=== PATIENT | female | born 1985 | race Caucasian/White ===

== ENCOUNTER 2023-01-04 14:31 | Emergency (ER) | payer MEDICAID, SELFPAY ==
[2023-01-04 14:37] VITALS: BP 129/90; PULSE 100; RESP 20; TEMP 36.6; O2SAT 97
[2023-01-04 14:41] VITALS: PULSE 100; RESP 20; TEMP 36.6
--- NOTE | 2023-01-04 14:47 | ED.GENADUL_ITS ---
Discharge Plan Disposition Patient Disposition: Home Discharge Details Clinical Impression: Otitis media Primary Care Provider: Lynne Hernandez ED Provider: Kelly Kaplan Home Meds and New Rx's Prescriptions: New amoxicillin 500 mg tablet 1,000 mg PO QID Qty: 42 0RF Discharge Instructions Instructions: Ear Infection (ED) Additional Instructions: Ibuprofen and Tylenol as needed for pain Decongestant to help alleviate the fluid behind your ears Ibuprofen and Tylenol for pain control Antibiotic as prescribed, yogurt daily while on antibiotic to prevent opportunistic stool infection Return earlier should you have new or worsening complaints Stand Alone Forms: Work Release Referrals: Lynne Hernandez MD [Primary Care Provider] - Discharge Data Discharge Date/Time-TO BE ENTERED AT DEPARTURE: 01/04/23 15:46 Medical Decision Making 37-year-old female, afebrile and nontoxic presenting with left ear pain, left otitis media, fluid middle ear effusion behind right ear, no mastoid tenderness behind left ear, oropharynx patent, uvula midline, no abscess visualized, placed on amoxicillin Return precautions reviewed and patient expressed understanding HPI General Date/Time Provider Initiated Documentation: 01/04/23 14:41 . HPI Narrative: This 37-year-old female presents with 2 days of ear pain, left worse than right, feels like there is fluid behind TMs bilaterally. Denies fever or chills. Denies any chest pain or shortness of breath. Denies any drainage from the ear. Denies chance of . Denies sore throat. Related Data Home Medications Medication Instructions Recorded Confirmed amoxicillin 500 mg tablet 1,000 mg (2 x 500 mg) PO QID #42 01/04/23 tabs Previous Rx's Medication Instructions Recorded amoxicillin 500 mg tablet 1,000 mg (2 x 500 mg) PO QID #42 01/04/23 tabs General Stated Complaint: EarProblem KOBY: 4 PFSH All Active Problems (Updated 01/04/23 @ 15:14 by KAMRAN Serrano) Otitis media (Acute) Social History Smoking/Tobacco Use Status: Current every day Smoking risk assessment performed?: Yes Alcohol Intake: current Alcohol Intake frequency: a few times a week Substance use type: does not use Details: methadone Housing: homeless Do you feel safe at home: Yes Do you feel safe in your relationship?: Yes Course Vital Signs Vital signs: Vital Signs Temperature 36.6 C 01/04/23 14:37 Pulse 100 H 01/04/23 14:37 Respiratory Rate 20 01/04/23 14:37 Blood Pressure 129/90 01/04/23 14:37 Pulse Oximetry 97 01/04/23 14:37 Temperature 36.6 C 01/04/23 14:41 Temperature Source Temporal Artery Scan 01/04/23 14:37 Pulse 100 H 01/04/23 14:41 Respiratory Rate 20 01/04/23 14:41 Respiratory Effort Normal 01/04/23 14:39 Blood Pressure 129/90 01/04/23 14:37 Pulse Oximetry 97 01/04/23 14:37 Oxygen Delivery Method Room Air 01/04/23 14:37 Oxygen Flow Rate 0 01/04/23 14:37
== END 2023-01-04 15:46 | disposition home or self-care (01) ==
PROVIDERS: Emergency Provider Physician Assistant; PCP Family Medicine
DX: H66.92 Otitis media, unspecified, left ear (principal); F17.210 Nicotine dependence, cigarettes, uncomplicated
CPT/HCPCS: 99282

== ENCOUNTER 2023-01-07 22:14 | Emergency (ER) | payer MEDICAID, SELFPAY ==
--- OUTSIDE RECORDS SUMMARY | 2023-01-07 22:20 | XMS_ITS | Continuity of Care Document ---
Author Name Unknown Organization [facility] Address [address] [place] [address] Care Team Providers Care Consulting Sales Executive Name Role Phone Daria Solis Primary Care Physician [phone] Encounter [facility] Date(s): 06/21/22 - 06/21/[address] [address] Discharge Disposition: Left Against Medical Advice Attending Physician: Bonita Montanez MD Admitting Physician: Bonita Montanez MD Allergies, Adverse Reactions, Alerts Substance Reaction Severity Status codeine Urticaria Unknown Active cephalexin Bewilderment Unknown Active Immunizations Given and Recorded Vaccine Date Status Refusal Reason influenza virus vaccine, live 01/14/20 Recorded influenza virus vaccine, live 01/21/19 Recorded tetanus/diphth/pertuss (Tdap) adult/adol 08/18/17 Recorded tetanus/diphth/pertuss (Tdap) adult/adol 1 05/28/14 Recorded influenza, unspecified formulation 03/28/14 Record ed rubella virus vaccine 03/06/00 Recorded varicella virus vaccine 03/06/00 Recorded tetanus-diphth toxoids (Td) adult/adol 03/06/00 Re corded 1Result 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: [employer] Medications Adderall XR 30 mg oral capsule, extended release 30 mg 1 cap, Oral, BID, # 28 cap, 0 Refill(s), Pharmacy: [id number], 165.1, cm, 08/11/21 20:47:00 EDT, Height/Length Dosing, 79.38, kg, 08/11/21 20:47:00 EDT, Weight Dosing Start Date: 09/28/21 Stop Date: 10/12/21 Status: Ordered Adderall XR 30 mg oral capsule, extended release 30 mg 1 cap, Oral, every morning, # 28 cap, 0 Refill(s), Pharmacy: [id number], 165.1, cm, 08/11/21 20:47:00 EDT, Height/Length Dosing, 79.38, kg, 08/11/21 20:47:00 EDT, Weight Dosing Start Date: 08/31/21 Stop Date: 09/28/21 Status: Ordered Adderall XR 30 mg oral capsule, extended release 30 mg 1 cap, Oral, BID, # 60 cap, 0 Refill(s), Pharmacy: [id number], 165.1, cm, 08/11/21 20:47:00 EDT, Height/Length Dosing, 79.38, kg, 08/11/21 20:47:00 EDT, Weight Dosing Start Date: 10/13/21 Stop Date: 11/12/21 Status: Ordered dextroamphetamine-amphetamine 30 mg oral capsule, extended release 30 mg 1 cap, Oral, BID, as directed; for 28 days, 0 Refill(s) Start Date: 08/16/21 Status: Ordered gabapentin 300 mg oral capsule 600 mg = 2 cap, Oral, every night at bedtime, 0 Refill(s) Start Date: 08/16/21 Status: Ordered methadone See Instructions, 100 mg, 0 Refill(s) Start Date: 04/28/22 Status: Ordered [facility] Prescription Pt reports she only takes methadone, 0 Refill(s) Start Date: 04/28/22 Status: Ordered Zoloft 100 mg oral tablet 200 mg = 2 tab, Oral, every morning, for 30 days, # 60 tab, 1 Refill(s), Pharmacy: [id number], 165.1, cm, 08/11/21 20:47:00 EDT, Height/Length Dosing, 79.38, kg, 08/11/21 20:47:00 EDT, Weight Dosing Start Date: 03/22/22 Status: Ordered Zoloft 50 mg oral tablet 50 mg = 1 tab, Oral, every morning, for 30 days; Note to patient: Take Zoloft 100 mg + 50 mg daily,0 Refill(s) Start Date: 08/16/21 Status: Ordered Problem List Condition Confirmation Course Effective Dates Status H ealth Status Informant Attention deficit hyperactivity disorder Confirmed Active Bipolar disorder 1 Confirmed Active Cervical radiculopathy Confirmed 02/05/20 Active Endometriosis (clinical) Confirmed Active Exposure to viral hepatitis Confirmed Active H/O: premature delivery Confirmed 05/14/18 Active Human papillomavirus deoxyribonucleic acid test positive, high risk on cervical specimen Confirmed Active 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 Opioid dependence Confirmed Active hemorrhage 2 Confirmed 05/27/14 Active premature rupture of membranes Confirmed 05/26/14 Active Uterine scar from previous surgery affecting Confirmed 08/20/18 Active 1Outside Source Comment: Overview: previously used lamictal 2Outside Source Comment: Overview: At time of repeat C/S, EBL 1000 ml, not due to atony Procedures Procedure Date Related Diagnosis Body Site Status section (repeat) 1 05/25/14 Completed Laparoscopic excision of cys t of left ovary 10/25/12 Completed Drainage of pilonidal abscess 08/02/11 Completed section 04/01/11 Complete d Diagnostic laparoscopy w/ LO A (repeat) 2 2007 Completed Diagnostic laparoscopy w/ NILAM 03/05/04 Completed LEEP (Loop electrosurgical e xcision procedure) of cervix 3 2002 Completed PAP due 04/2023 5 yr pap 4 Completed 1Breech 2(repeat) at [facility] 3GSIL Neg/Neg Social History Social History Type Response Tobacco Current some day tob acco user Tobacco Use:. 1/2 pack per day per day. 10 year(s). Sex Female Patient Care team information Care Team Personnel Name: Daria Solis PA-C Position: Physician Member Role: Primary Care Physician Address: Address: [address] [place] [id number] [place] Care Team Related Persons Name: VIJAY BRONSON Address: Home [address] [facility] [address] [place], [place] [id number] Address: Mailing [address] [place], [place] [id number]
--- OUTSIDE RECORDS SUMMARY | 2023-01-07 22:20 | XMS_ITS | Continuity of Care Document ---
Author Name Unknown Organization [facility] Address [address] [place] [address] Care Team Providers Care Technical Supervisor Name Role Phone Daria Solis Primary Care Physician Encounter [facility] Date(s): 04/28/22 - 04/28/[address] [phone] [place] Encounter Diagnosis Gastroenteritis(Discharge Diagnosis) - 04/28/22 Noninfective gastroenteritis and colitis, unspecified(Final) - Nicotine dependence, cigarettes, uncomplicated(Final) - Other snf (current) drug therapy(Final) - Contact with and (suspected) exposure to other viral communicable diseases (Final) - Discharge Disposition: Home or Self Care Attending Physician: Ahsan Britt MD Admitting Physician: Ahsan Britt MD Allergies, Adverse Reactions, Alerts Substance Reaction Severity Status codeine Urticaria Unknown Active cephalexin Bewilderment Unknown Active Assessment and Plan Extracted from: Title:Clinical Document Author:Netta Lemus te:04/28/22 Diagnosis: 1. Gastroenteriti s Comment: Diagnosis: Abdominal pain Comment: Future Appointments Functional Status 04/28/22 Other exposure to Infectious Disease Non e Immunizations Given and Recorded Vaccine Date Status Refusal Reason influenza virus vaccine, live 01/14/20 Recorded influenza virus vaccine, live 01/21/19 Recorded tetanus/diphth/pertuss (Tdap) adult/adol 08/18/17 Recorded rubella virus vaccine 03/06/00 Recorded varicella virus vaccine 03/06/00 Recorded tetanus-diphth toxoids (Td) adult/adol 03/06/00 Re corded Medications Adderall XR 30 mg oral capsule, extended release 30 mg 1 cap, Oral, BID, # 28 cap, 0 Refill(s), Pharmacy: [facility], 165.1, cm, 08/11/21 20:47:00 EDT, Height/Length Dosing, 79.38, kg, 08/11/21 20:47:00 EDT, Weight Dosing Start Date: 09/28/21 Stop Date: 10/12/21 Status: Ordered Adderall XR 30 mg oral capsule, extended release 30 mg 1 cap, Oral, every morning, # 28 cap, 0 Refill(s), Pharmacy: [facility], 165.1, cm, 08/11/21 20:47:00 EDT, Height/Length Dosing, 79.38, kg, 08/11/21 20:47:00 EDT, Weight Dosing Start Date: 08/31/21 Stop Date: 09/28/21 Status: Ordered Adderall XR 30 mg oral capsule, extended release 30 mg 1 cap, Oral, BID, # 60 cap, 0 Refill(s), Pharmacy: [facility], 165.1, cm, 08/11/21 20:47:00 EDT, Height/Length [...] 0 Refill(s) Start Date: 04/28/22 Status: Ordered methadone 100 mg = 2.5 tab, Oral, Tab, Once, First Dose: 04/28/22 12:37:00 EST, Stop Date: 04/28/22 12:37:00 EST, Physician Stop, STAT Start Date: 04/28/22 Stop Date: 04/28/22 Status: Completed [facility] Prescription Pt reports she only takes methadone, 0 Refill(s) Start Date: 04/28/22 Status: Ordered ondansetron 4 mg oral tablet, disintegrating 4 mg = 1 tab, Oral, QID, PRN nausea, # 15 tab, 0 Refill(s), 05/04/22 15:21:00 EST, Pharmacy: [facility], 165, cm, 04/28/22 12:32:00 EST, Height/Length Dosing, 79.38, kg, 04/28/22 12:32:00 EST,Weight Dosing Start Date: 04/28/22 Stop Date: 05/04/22 Status: Ordered Zoloft 100 mg oral tablet 200 mg = 2 tab, Oral, every morning, for 30 days, # 60 tab, 1 Refill(s), Pharmacy: [facility], 165.1, cm, 08/11/21 20:47:00 EDT, Height/Length [...] Informant Attention deficit hyperactivity disorder Confirmed Active Cervical radiculopathy Confirmed 02/05/20 Active Endometriosis (clinical) Confirmed Active Exposure to viral hepatitis Confirmed Active H/O: premature delivery Confirmed 05/14/18 Active Human papillomavirus deoxyribonucleic acid test positive, high risk on cervical specimen Confirmed Active 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 Opioid dependence Confirmed Active Uterine scar from previous surgery affecting Confirmed 08/20/18 Active Procedures Procedure Date Related Diagnosis Body Site [...] yr pap 4 Completed 1Breech 2(repeat) at [facility] Neg/Neg Results Laboratory List Name Date SARS-CoV-2 (COVID-19)/Flu/RSV (GeneXpert ) 04/28/22 .Manual Differential ([facility]) 04/28/22 Alcohol Level 04/28/22 CBC w/ Diff 04/28/22 Comprehensive Metabolic Panel 04/28/22 Lipase Level 04/28/22 Troponin-I 04/28/22 Most recent to oldest [Reference Range]: 1 WBC [5.0-10.0 x10^3/mcL] 15.7 x10^3/mcL *HI* (04/28/22 12:38 PM) RBC [4.1-5.3 x10^6/mcL] 4.8 x10^6/mcL (04/28/22 12:38 PM) Segs Man [40-75 %] 90 % *HI* (04/28/22 12:38 PM) Lymph Man [20-50 %] 7 % *LOW* (04/28/22 12:38 PM) [place] Man 2 % *NA* (04/28/22 12:38 PM) Eos Man 0 % *NA* (04/28/22 12:38 PM) BUN [7-18 mg/dL] 8 mg/dL (04/28/22 12:38 PM) Glucose Level [74-106 mg/dL] 115 mg/dL *HI* (04/28/22 12:38 PM) Potassium Level [3.5-5.1 mmol/L] 4.7 mmo l/L (04/28/22 12:38 PM) MCV [80.0-96.0] 91.5 (04/28/22 12:38 PM) RBC Morph Normal (04/28/22 12:38 PM) AST [15-37 unit/L] 33 unit/L (04/28/22 12:38 PM) ALT [14-59 unit/L] 24 unit/L (04/28/22 12:38 PM) MCHC [31.0-35.0 g/dL] 32.9 g/dL (04/28/22 12:38 PM) Troponin-I [0.0-51.4 pg/mL] <5.0 pg/mL (04/28/22 12:38 PM) Sodium Level [136-145 mmol/L] 136 mmol/L (04/28/22 12:38 PM) Hct [37.0-47.0 %] 44.1 % (04/28/22 12:38 PM) Lipase Level [16-77 unit/L] 27 unit/L (04/28/22 12:38 PM) Calcium Level [8.5-10.1 mg/dL] 9.2 mg/dL (04/28/22 12:38 PM) Albumin Level [3.4-5.0 g/dL] 3.7 g/dL (04/28/22 12:38 PM) Protein Total [6.4-8.2 g/dL] 7.4 g/dL (04/28/22 12:38 PM) MCH [26.0-32.0 pg] 30.1 pg (04/28/22:38 PM) Bilirubin Total [0.2-1.0 mg/dL] 0.5 mg/d L (04/28/22:38 PM) Hgb [12.0-16.0 g/dL] 14.5 g/dL (04/28/22 12:38 PM) Alk Phos [46-146 unit/L] 85 unit/L (04/28/22 12:38 PM) Ethanol Level [0-10 mg/dL] <5 mg/dL (04/28/22:38 PM) Band Man [0-5 %] 0 % (04/28/22 12:38 PM) Platelets [130-450 x10^3/mcL] 278 x10^3/ mcL (04/28/22 12:38 PM) CO2 [21-32 mmol/L] 23 mmol/L (04/28/22 12:38 PM) eGFR Non-AA [>=60] 75 (04/28/22 12:38 PM) eGFR AA [>=60] 75 (04/28/22 12:38 PM) Chloride Level [98-107 mmol/L] 101 mmol/ L (04/28/22 12:38 PM) RDW-CV [11.7-17.0 %] 13.2 % (04/28/22 12:38 PM) Abs Neut Man 14.1 x10^3/mcL *NA* (04/28/22 12:38 PM) Creatinine Level [0.55-1.02 mg/dL] 0.99 mg/dL (04/28/22 12:38 PM) Employed in healthcare? Unknown *NA* (04/28/22 12:59 PM) Symptomatic as defined by CDC? Unknown *NA* (04/28/22 12:59 PM) Hospitalized due to COVID-19? Unknown *NA* (04/28/22 12:59 PM) In ICU? Unknown *NA* (04/28/22 12:59 PM) Group care resident? Unknown *NA* (04/28/22 12:59 PM) status? Unknown *NA* (04/28/22 12:59 PM) SARS-CoV-2(Covid19)PCR(GXpert COVFLURSV) [Negative] Negative (04/28/22 12:59 PM) Flu A (GXpert COVFLURSV) [Negative] Nega tive (04/28/22 12:59 PM) RSV (GXpert COVFLURSV) [Negative] Negati ve (04/28/22 12:59 PM) Flu B (GXpert COVFLURSV) [Negative] Nega tive (04/28/22 12:59 PM) Baso Man [0-1 %] 1 % (04/28/22 12:38 PM) Vital Signs Most recent to oldest [Reference Range]: 1 2 3 Temperature Temporal Artery [36-38 Deg C] 36.7 Deg C (04/28/22 12:20 PM) Temperature Temporal Artery (DegF) [97.3-100 Deg F] 98.06 Deg F (04/28/22 12:20 PM) Peripheral Pulse Rate [60-100 bpm] 44 bpm *LOW* (04/28/22 12:46 PM) 44 bpm *LOW* (04/28/22 12:41 PM) 54 bpm *LOW* (04/28/22 12:32 PM) Heart Rate Monitored [60-100 bpm] 46 bpm *LOW* (04/28/22 12:46 PM) 45 bpm *LOW* (04/28/22 12:41 PM) Respiratory Rate [[id number] br/min] 20 br/min (04/28/22 2:26 PM) Respiratory Rate [12-24 br/min] 17 br/min (04/28/22 12:46 PM) 22 br/min (04/28/22 12:41 PM) Blood Pressure [90-140/60-90 mmHg] 132/73mmHg (04/28/22 12:46 PM) 135/116mmHg (04/28/22 12:20 PM) Weight Dosing 79.38 kg (04/28/22 12:32 PM) Weight Estimated 79.38 kg (04/28/22 12:20 PM) Height/Length Dosing 165.000 cm (04/28/22 12:32 PM) Height/Length Estimated 165.000 cm (04/28/22 12:20 PM) Social History Social History Type Response Tobacco Current some day tob acco user Tobacco Use:. 1/2 pack per day per day. 10 year(s). Sex Female Hospital Discharge Instructions Patient Education 04/28/2022 14:22:22 Viral Gastroenteritis, Adult Viral Gastroenteritis, Adult Viral gastroenteritis is also known as the stomach flu. This condition may affect your stomach, small intestine, and large intestine. It can cause sudden watery diarrhea, fever, and vomiting. This condition is caused by many different viruses. These viruses can be passed from person to person very easily (are contagious). Diarrhea and vomiting can make you feel weak and cause you to become dehydrated. You may not be able to keep fluids down. Dehydration can make you tired and thirsty, cause you to have a dry mouth, and decrease how often you urinate. It is important to replace the fluids that you lose from diarrhea and vomiting. What are the causes? Gastroenteritis is caused by many viruses, including rotavirus and norovirus. Norovirus is the mostcommon cause in adults. You can get sick after being exposed to the viruses from other people. You can also get sick by: ??? Eating food, drinking water, or touching a surface contaminated with one of these viruses. ??? Sharing utensils or other personal items with an infected person. What increases the risk? You are more likely to develop this condition if you: ??? Have a weak body defense system (immune system). ??? Live with one or more children who are younger than 2 years old. ??? Live in a shelter. ??? Travel on cruise ships. What are the signs or symptoms? Symptoms of this condition start suddenly 1???3 days after exposure to a virus. Symptoms may last for a few days or for as long as a week. Common symptoms include watery diarrhea and vomiting. Other symptoms include: ??? Fever. ??? Headache. ??? Fatigue. ??? Pain in the abdomen. ??? Chills. ??? Weakness. ??? Nausea. ??? Muscle aches. ??? Loss of appetite. How is this diagnosed? This condition is diagnosed with a medical history and physical exam. You may also have a stool test to check for viruses or other infections. How is this treated? This condition typically goes away on its own. The focus of treatment is to prevent dehydration andrestore lost fluids (rehydration). This condition may be treated with: ??? An oral rehydration solution (ORS) to replace important salts and minerals (electrolytes) in your body. Take this if told by your health care provider. This is a drink that is sold at pharmacies and retail stores. ??? Medicines to help with your symptoms. ??? Probiotic supplements to reduce symptoms of diarrhea. ??? Fluids given through an IV, if dehydration is severe. Older adults and people with other diseases or a weak immune system are at higher risk for dehydration. Follow these instructions at home: Eating and drinking ??? Take an ORS as told by your health care provider. ??? Drink clear fluids in small amounts as you are able. Clear fluids include: ??? Water. ??? Ice chips. ??? Diluted fruit juice. ??? Low-calorie sports drinks. ??? Drink enough fluid to keep your urine pale yellow. ??? Eat small amounts of healthy foods every 3???4 hours as you are able. This may include whole grains, fruits, vegetables, lean meats, and yogurt. ??? Avoid fluids that contain a lot of sugar or caffeine, such as energy drinks, sports drinks, andsoda. ??? Avoid spicy or fatty foods. ??? Avoid alcohol. General instructions ??? Wash your hands often, especially after having diarrhea or vomiting. If soap and water are not available, use hand watershed coordinator. ??? Make sure that all people in your household wash their hands well and often. ??? Take [id number] and prescription medicines only as told by your health care provider. ??? Rest at home while you recover. ??? Watch your condition for any changes. ??? Take a warm bath to relieve any burning or pain from frequent diarrhea episodes. ??? Keep all follow-up visits as told by your health care provider. This is important. Contact a health care provider if you: ??? Cannot keep fluids down. ??? Have symptoms that get worse. ??? Have new symptoms. ??? Feel light-headed or dizzy. ??? Have muscle cramps. Get help right away if you: ??? Have chest pain. ??? Feel extremely weak or you faint. ??? See blood in your vomit. ??? Have vomit that looks like coffee grounds. ??? Have bloody or black stools or stools that look like tar. ??? Have a severe headache, a stiff neck, or both. ??? Have a rash. ??? Have severe pain, cramping, or bloating in your abdomen. ??? Have trouble breathing or you are breathing very quickly. ??? Have a fast heartbeat. ??? Have skin that feels cold and clammy. ??? Feel confused. ??? Have pain when you urinate. ??? Have signs of dehydration, such as: ??? Dark urine, very little urine, or no urine. ??? Cracked lips. ??? Dry mouth. ??? Sunken eyes. ??? Sleepiness. ??? Weakness. Summary ??? Viral gastroenteritis is also known as the stomach flu. It can cause sudden watery diarrhea, fever, and vomiting. ??? This condition can be passed from person to person very easily (is contagious). ??? Take an ORS if told by your health care provider. This is a drink that is sold at pharmacies and retail stores. ??? Wash your hands often, especially after having diarrhea or vomiting. If soap and water are not available, use hand watershed coordinator. This information is not intended to replace advice given to you by your health care provider. Make sure you discuss any questions you have with your health care provider. Document Revised: 08/09/2019 Document Reviewed: 12/26/2018 [employer] Patient Education ?? 2021 [employer]. Follow Up Care 04/28/2022 12:20:34 With:Daria Solis PA-C Address: [address] [place] [id number] When:1 to 2 weeks Physician Emergency department Note * Ahsan Britt MD: PERFORM Event Display: ED Note Physician Authored Date: [id number] SAIGE PARRY :1985 Age:36 years Sex:Female Visit Date:04/28/2022 Primary Care Physician: Daria Solis PA-C Basic Information Time Seen: Ahsan Britt MD / 04/28/2022 12:27 Chief Complaint Pt c/o being woken up with LUQ/LLQ pain this morning with nausea, vomiting. Reports she was unable to take methadone this AM. Pt uncomfortable. History Of Present Illness: 36-year-old female presents by EMS because of abdominal pain that she woke up with this morning. ??She also has been having some intractable nausea vomiting and diarrhea.?? No food poisoning on history or contacts or recent antibiotics.?? She is on methadone??and usually takes 100 mg a day.?? She got a dose yesterday morning but at the methadone clinic this morning??her dose was not given??because she was having intractable nausea and vomiting.?? She does not feel that she is in withdrawal.?? She reports that she has been clean without any??other drug use.?? No URI symptoms or chest pain or runny nose sore throat reported. ??Abdomen is hurting, she points to the??lower abdomen mostly it does not lateralize, she is status post tubal ligation, has a history of endometriosis, she has had C-sections in the past. ??No GI bleeding or urinary symptoms.?? Has some pain in her back intermittently.?? She arrives here quite restless and uncomfortable.?? We checked with the methadone clinic and the patient indeed did not get her 100 mg dose this morning that she typically receives. Review of Systems: Constitutional:??no??fever,??no??chills,? Skin:??no??Jaundice,??no??rash ENMT:??no??ear pain,??no??sore throat,??no??congestion,??no??hoarseness Respiratory:??no??shortness of breath,??no??cough,? Cardiovascular:??no??chest pain,??no??palpitations,? Gastrointestinal:??moderate??nausea,??moderate??vomiting,??moderate??diarrhea,?? no??GIbleeding, positive for abdominal pain Genitourinary:??no??dysuria,??no??hematuria,??no??discharge,? Musculoskeletal:??Endorses some low back pain. Neurologic:??no??headache,? Physical Exam Vitals & Measurements T:??36.7?C ??(Temporal Artery)?? HR:??44??(Peripheral)?? HR:??46??(Monitored)?? RR:??20?? BP:??132/73?? SpO2:??99%?? HT:??165.000??cm?? WT:??79.38??kg??(Estimated)?? Pain Score:??10?? O2 Therapy:??Room air?? General:??alert,??moderate distress.?? Does not look septic but she is rather restless??and uncomfortable due to abdominal pain.?? Skin is dry. Skin:??warm,??dry. Head:??no??trauma,??normocephalic. Neck:??trachea??midline,??no??adenopathy,??no??tenderness. Eye:??normal??conjunctiva, sclera??clear. Cardiovascular:??regular??rate and rhythm,??normal??peripheral perfusion. Respiratory: lungs??CTA, respirations??non-labored. Chest wall:??no??deformity. Gastrointestinal:??soft,??non distended,??tenderness noted notably across the lower half of the abdomen,??bowel sounds noted although perhaps decreased. ??There is no distention.?? No focal tenderness in 1 specific spot, Garcia's negative McBurney's negative. Extremities:??no??deformity,??no??trauma.?? No signs of DVT, no track mercado Neurological:??oriented??x 4,?? speech??normal. Psychiatric:??cooperative, affect??appropriate for age,?? Medical Decision Making: Medical Decision-Making: Clinical lab tests: ordered and reviewed -??Yes Tests in the radiology section of [facility]??: ordered and reviewed -??Yes Tests in the medicine section of [facility]??: ordered and reviewed -??Yes Decide to obtain previous medical records -??Yes ?? Review and summarize past medical records -??Yes ?? Independent visualization of images, tracings, or specimens? Yes ?? Differential diagnosis includes gastroenteritis, viral illness, she had not had her dose of methadone this morning and eventually??some withdrawal symptoms may have compounded symptoms.?? I reviewed the CAT scan report??notably some??very dilatation. ??However her LFTs noted the bili is not elevated and there is no??biochemical signs of hepatitis or cholangitis or common bile duct obstruction.??The pain was not just in the right upper quadrant.?? Here the patient got some Zofran and Toradoland eventually was able to keep her usual dose of methadone down.?? We verified with the methadone clinic that she did not receive it today.?? Her nausea was improved after Zofran and Compazine.?? After the CAT scan report I wanted to do an ultrasound but the patient refuses. ??She wants to go home. ??I explained to her the rationale, told her she should follow-up with her doctor to discuss this in the future. ??She denies any history of hepatitis. ??Repeat exam at??3:15 PM shows no right upperquadrant pain and actually no pain anywhere's.?? Patient discharged in improved and stable condition. ?? Procedure No Qualifying Data Assessment/Plan 1.??Gastroenteritis??K52.9 Ordered: ondansetron 4 mg oral tablet, disintegrating, 4 mg = 1 tab, Oral, QID, PRN nausea, # 15 tab, 0 Refill(s), 05/04/22 15:21:00 EST, Pharmacy: [facility], 165, cm, 04/28/22 12:32:00 EST, Height/Length Dosing, 79.38, kg, 04/28/22 12:32:00 EST, Weight Dosing Discharge Patient, 04/28/22 15:20:00 EST, Home Independently, Constant Indicator ?? Orders: Drug Screen Urine, Urine, Stat Collect, 04/28/22 12:28:00 EST, Once, Nurse collect, Print Label Urinalysis with Micro if Indicated and Culture if Indicated, Urine, Stat Collect, 04/28/22 12:28:00EST, Once, Nurse collect, Print Label US Abdomen Limited, 04/28/22 15:12:00 EST, Stat, Reason: RUQ pain, Transport Mode: Stretcher, Exam to be performed outside organization? Patient Education Viral Gastroenteritis, Adult Follow Up With When Contact Information Daria Solis PA-C Within [address] to [address] [place] [phone] Additional Instructions: Medication Reconciliation New Prescription ondansetron (ondansetron 4 mg oral tablet, disintegrating)1 tab Oral (given by mouth) 4 times a dayas needed nausea. Refills: 0. ?? Unchanged dextroamphetamine-amphetamine (Adderall XR 30 mg oral capsule, extended release)1 Capsules Oral (given by mouth) 2 times a day for 14 Days. Refills: 0. ?? dextroamphetamine-amphetamine (Adderall XR 30 mg oral capsule, extended release)1 Capsules Oral (given by mouth) every morning for 28 Days. Refills: 0. ?? dextroamphetamine-amphetamine (Adderall XR 30 mg oral capsule, extended release)1 Capsules Oral (given by mouth) 2 times a day for 30 Days. Refills: 0. ?? dextroamphetamine-amphetamine (dextroamphetamine-amphetamine 30 mg oral capsule, extended release)1Capsules Oral (given by mouth) 2 times a day. as directed; for 28 days. ?? gabapentin (gabapentin 300 mg oral capsule)2 Capsules Oral (given by mouth) every night at bedtime. ?? [id number] mg. ?? [facility]Pt reports she only takes methadone. ?? sertraline (Zoloft 100 mg oral tablet)2 tab Oral (given by mouth) every morning. for 30 days. Refills: 1. ?? sertraline (Zoloft 50 mg oral tablet)1 tab Oral (given by mouth) every morning. for 30 days; Note to patient: Take Zoloft 100 mg + 50 mg daily. 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 section (repeat) (05/26/2014)???Laparoscopic excision of cyst of left ovary (10/26/2012)???Drainage of pilonidal abscess (08/03/2011)??? section (04/02/2011)???Diagnostic laparoscopy w/ NILAM (repeat) (2007)???Diagnostic laparoscopy w/ NILAM (03/06/2004)???LEEP (Loop electrosurgical excision procedure) of cervix (2002)???PAP due 04/2023 5 yr pap Medication Administration Given !-Compazine, 5 mg, IV Push !-Zofran, 4 mg, IV Push 0.9% NaCl bolus, 1 L, IV Bolus methadone, 100 mg, Oral Toradol, 30 mg, IV Bolus Allergies cephalexin??(Bewilderment) codeine??(Urticaria) Social History Electronic Cigarette/Vaping Electronic Cigarette Use: Never. Sexual Other contraceptive use: Tubal Ligation. Tobacco Current some day tobacco user Tobacco Use:. 1/2 pack per day per day. 10 year(s). Family History Breast cancer: Mother. Liver cancer: Father. Family Member(s): ?? FATHER, at age: Unknown. Cause of : Lab Results CBC and Differential?? LATEST RESULTS?? WBC?? 04/28/22 12:38?? 15.7 ??High?? RBC?? 04/28/22 12:38?? 4.8?? Hgb?? 04/28/22 12:38?? 14.5?? Hct?? 04/28/22 12:38?? 44.1?? MCV?? 04/28/22 12:38?? 91.5?? MCH?? 04/28/22 12:38?? 30.1?? MCHC?? 04/28/22 12:38?? 32.9?? RDW-CV?? 04/28/22 12:38?? 13.2?? Platelets?? 04/28/22 12:38?? 278?? Segs Man?? 04/28/22 12:38?? 90 ??High?? Lymph Man?? 04/28/22 12:38?? 7 ??Low?? [place] Man?? 04/28/22 12:38?? 2?? Eos Man?? 04/28/22 12:38?? 0?? Baso Man?? 04/28/22 12:38?? 1?? Band Man?? 04/28/22 12:38?? 0?? Abs Neut Man?? 04/28/22 12:38?? 14.1?? RBC Morph?? 04/28/22 12:38?? Normal? Routine Chemistry?? LATEST RESULTS?? Sodium Level?? 04/28/22 12:38?? 136?? Potassium Level?? 04/28/22 12:38?? 4.7?? Chloride Level?? 04/28/22 12:38?? 101?? CO2?? 04/28/22 12:38?? 23?? Alk Phos?? 04/28/22 12:38?? 85?? AST?? 04/28/22 12:38?? 33?? ALT?? 04/28/22 12:38?? 24?? BUN?? 04/28/22 12:38?? 8?? Glucose Level?? 04/28/22 12:38?? 115 ??High?? Creatinine Level?? 04/28/22 12:38?? 0.99?? eGFR AA?? 04/28/22 12:38?? 75?? eGFR Non-AA?? 04/28/22 12:38?? 75?? Calcium Level?? 04/28/22 12:38?? 9.2?? Protein Total?? 04/28/22 12:38?? 7.4?? Albumin Level?? 04/28/22 12:38?? 3.7?? Bilirubin Total?? 04/28/22 12:38?? 0.5?? Lipase Level?? 04/28/22 12:38?? 27? Cardiac Isoenzymes?? LATEST RESULTS?? Troponin-I?? 04/28/22 12:38?? <5.0? Serum Toxicology?? LATEST RESULTS?? Ethanol Level?? 04/28/22 12:38?? <5? Infectious Disease?? LATEST RESULTS?? Employed in healthcare??? 04/28/22 12:59?? Unknown?? Symptomatic as defined by CDC??? 04/28/22 12:59?? Unknown?? Hospitalized due to COVID-19??? 04/28/22 12:59?? Unknown?? In ICU??? 04/28/22 12:59?? Unknown?? Group care resident??? 04/28/22 12:59?? Unknown?? status??? 04/28/22 12:59?? Unknown?? SARS-CoV-2(Covid19)PCR(GXpert COVFLURSV)?? 04/28/22 12:59?? Negative?? Flu A ([facility]Xpert COVFLURSV)?? 04/28/22 12:59?? Negative?? Flu B ([facility]Xpert COVFLURSV)?? 04/28/22 12:59?? Negative?? RSV (GXpert COVFLURSV)?? 04/28/22 12:59?? Negative? Electronically Signed on 04/28/22 03:24 PM Ahsan Britt MD Emergency department Discharge instructions * Ahsan Britt MD: PERFORM Event Display: ED Discharge Information Authored Date: [id number] SAIGE PARRY :1985 Age:36 years Sex:Female Visit Date:04/28/2022 Primary Care Physician: Daria Solis-Edenilson Discharge Instructions We would like to thank you for allowing us to assist you with your healthcare needs. The following includes patient education materials and information regarding your injury/illness. Diagnosis from Today's Visit Gastroenteritis Discharge Vitals Temperature??(Temporal Artery) 98.1 ??F (36.7 ??C) Heart Rate??(Monitored) 46 Heart Rate??(Peripheral) 44 Respiratory Rate?? 20 Blood Pressure?? 132/73?? Height?? 64.96 in (165.000 cm) Weight??(Estimated) 175.03 lb (79.38 kg) Allergies cephalexin??(Bewilderment) codeine??(Urticaria) What to Do Next Instructions from Your Care Team Clear liquids until your stomach stabilizes.?? A prescription for Zofran to help with the nausea sent to your pharmacy.?? Follow-up with your doctor to discuss arranging for gallbladder ultrasound and follow-up. You Need to Schedule the Following Appointments Follow Up with??Daria Solis PA-C When:??Within 1 to 2 weeks Where: [address] [place] [id number] Upcoming Scheduled Appointments 2022 10:00 AM EDT ?? You were treated today on an emergency basis; it may be chavez to contact your primary care provider to notify them of your visit today. You may have been referred to your regular doctor or a specialist, please follow up as instructed. If your condition worsens or you can't get in to see the doctor, contact the Emergency Department. Medications What How Much When Why Instructions Next Dose New ondansetron (ondansetron 4 mg oral tablet, disintegrating) 1 tab Oral (given by mouth) 4 times a day as needed for nausea Gastroenteritis Pickup at [facility] Unchanged dextroamphetamine-amphetamine (Adderall XR 30 mg oral capsule, extended release) 1 Capsules Oral (given by mouth) 2 times a day ADHD (attention deficit hyperactivity disorder) Duration: 14 Days Unchanged dextroamphetamine-amphetamine (Adderall XR 30 mg oral capsule, extended release) 1 Capsules Oral (given by mouth) Every morning ADHD (attention deficit hyperactivity disorder) Duration: 28 Days Unchanged dextroamphetamine-amphetamine (Adderall XR 30 mg oral capsule, extended release) 1 Capsules Oral (given by mouth) 2 times a day ADHD (attention deficit hyperactivity disorder) Duration: 30 Days Unchanged dextroamphetamine-amphetamine (dextroamphetamine-amphetamine 30 mg oral capsule, extendedrelease) 1 Capsules Oral (given by mouth) 2 times a day as directed; for 28 days ?? Unchanged gabapentin (gabapentin 300 mg oral capsule) 2 Capsules Oral (given by mouth) Every night at bedtime Unchanged methadone See instructions 100 mg ?? Unchanged Other Prescription (Misc Prescription) Pt reports she only takes methadone ?? Unchanged sertraline (Zoloft 100 mg oral tablet) 2 tab Oral (given by mouth) Every morning for 30 days ?? Unchanged sertraline (Zoloft 50 mg oral tablet) 1 tab Oral (given by mouth) Every morning for 30 days; Note to patient: Take Zoloft 100 mg + 50 mg daily ?? Pharmacy Information [id number]: [address], [place] [id number] [phone] Education Materials Viral Gastroenteritis, Adult Viral gastroenteritis is also known as the stomach flu. This condition may affect your stomach, small intestine, and large intestine. It can cause sudden watery diarrhea, fever, and vomiting. This condition is caused by many different viruses. These viruses can be passed from person to person very easily (are contagious). Diarrhea and vomiting can make you feel weak and cause you to become dehydrated. You may not be able to keep fluids down. Dehydration can make you tired and thirsty, cause you to have a dry mouth, and decrease how often you urinate. It is important to replace the fluids that you lose from diarrhea and vomiting. What are the causes? Gastroenteritis is caused by many viruses, including rotavirus and norovirus. Norovirus is the mostcommon cause in adults. You can get sick after being exposed to the viruses from other people. You can also get sick by: ? Eating food, drinking water, or touching a surface contaminated with one of these viruses. ? Sharing utensils or other personal items with an infected person. What increases the risk? You are more likely to develop this condition if you: ? Have a weak body defense system (immune system). ? Live with one or more children who are younger than 2 years old. ? Live in a shelter. ? Travel on cruise ships. What are the signs or symptoms? Symptoms of this condition start suddenly 1???3 days after exposure to a virus. Symptoms may last for a few days or for as long as a week. Common symptoms include watery diarrhea and vomiting. Other symptoms include: ? Fever. ? Headache. ? Fatigue. ? Pain in the abdomen. ? Chills. ? Weakness. ? Nausea. ? Muscle aches. ? Loss of appetite. How is this diagnosed? This condition is diagnosed with a medical history and physical exam. You may also have a stool test to check for viruses or other infections. How is this treated? This condition typically goes away on its own. The focus of treatment is to prevent dehydration andrestore lost fluids (rehydration). This condition may be treated with: ? An oral rehydration solution (ORS) to replace important salts and minerals (electrolytes) in your body. Take this if told by your health care provider. This is a drink that is sold at pharmacies and retail stores. ? Medicines to help with your symptoms. ? Probiotic supplements to reduce symptoms of diarrhea. ? Fluids given through an IV, if dehydration is severe. Older adults and people with other diseases or a weak immune system are at higher risk for dehydration. Follow these instructions at home: Eating and drinking ? Take an ORS as told by your health care provider. ? Drink clear fluids in small amounts as you are able. Clear fluids include: ? Water. ? Ice chips. ? Diluted fruit juice. ? Low-calorie sports drinks. ? Drink enough fluid to keep your urine pale yellow. ? Eat small amounts of healthy foods every 3???4 hours as you are able. This may include whole grains, fruits, vegetables, lean meats, and yogurt. ? Avoid fluids that contain a lot of sugar or caffeine, such as energy drinks, sports drinks, and soda. ? Avoid spicy or fatty foods. ? Avoid alcohol. General instructions ? Wash your hands often, especially after having diarrhea or vomiting. If soap and water are not available, use hand watershed coordinator. ? Make sure that all people in your household wash their hands well and often. ? Take [id number] and prescription medicines only as told by your health care provider. ? Rest at home while you recover. ? Watch your condition for any changes. ? Take a warm bath to relieve any burning or pain from frequent diarrhea episodes. ? Keep all follow-up visits as told by your health care provider. This is important. Contact a health care provider if you: ? Cannot keep fluids down. ? Have symptoms that get worse. ? Have new symptoms. ? Feel light-headed or dizzy. ? Have muscle cramps. Get help right away if you: ? Have chest pain. ? Feel extremely weak or you faint. ? See blood in your vomit. ? Have vomit that looks like coffee grounds. ? Have bloody or black stools or stools that look like tar. ? Have a severe headache, a stiff neck, or both. ? Have a rash. ? Have severe pain, cramping, or bloating in your abdomen. ? Have trouble breathing or you are breathing very quickly. ? Have a fast heartbeat. ? Have skin that feels cold and clammy. ? Feel confused. ? Have pain when you urinate. ? Have signs of dehydration, such as: ? Dark urine, very little urine, or no urine. ? Cracked lips. ? Dry mouth. ? Sunken eyes. ? Sleepiness. ? Weakness. Summary ? Viral gastroenteritis is also known as the stomach flu. It can cause sudden watery diarrhea, fever,and vomiting. ? This condition can be passed from person to person very easily (is contagious). ? Take an ORS if told by your health care provider. This is a drink that is sold at pharmacies and retail stores. ? Wash your hands often, especially after having diarrhea or vomiting. If soap and water are not available, use hand watershed coordinator. This information is not intended to replace advice given to you by your health care provider. Make sure you discuss any questions you have with your health care provider. Document Revised: 08/09/2019 Document Reviewed: 12/26/2018 Elsevier Patient Education ?? 2021 [employer] Tests Performed Medications and Immunizations Administered Given !-Compazine, 5 mg, IV Push !-Zofran, 4 mg, IV Push 0.9% NaCl bolus, 1 L, IV Bolus methadone, 100 mg, Oral Toradol, 30 mg, IV Bolus Lab Test Name Test Result Date/Time WBC 15.7 x10^3/mcL 04/28/2022 12:38 EST RBC 4.8 x10^6/mcL 04/28/2022 12:38 EST Hgb 14.5 g/dL 04/28/2022 12:38 EST Hct 44.1 % 04/28/2022 12:38 EST MCV 91.5 04/28/2022 12:38 EST MCH 30.1 pg 04/28/2022 12:38 EST MCHC 32.9 g/dL 04/28/2022 12:38 EST RDW-CV 13.2 % 04/28/2022 12:38 EST Platelets 278 x10^3/mcL 04/28/2022 12:38 EST Segs Man 90 % 04/28/2022 12:38 EST Lymph Man 7 % 04/28/2022 12:38 EST [place] Man 2 % 04/28/2022 12:38 EST Eos Man 0 % 04/28/2022 12:38 EST Baso Man 1 % 04/28/2022 12:38 EST Band Man 0 % 04/28/2022 12:38 EST Abs Neut Man 14.1 x10^3/mcL 04/28/2022 12:38 EST RBC Morph Normal 04/28/2022 12:38 EST Sodium Level 136 mmol/L 04/28/2022 12:38 EST Potassium Level 4.7 mmol/L 04/28/2022 12:38 EST Chloride Level 101 mmol/L 04/28/2022 12:38 EST CO2 23 mmol/L 04/28/2022 12:38 EST Alk Phos 85 unit/L 04/28/2022 12:38 EST AST 33 unit/L 04/28/2022 12:38 EST ALT 24 unit/L 04/28/2022 12:38 EST BUN 8 mg/dL 04/28/2022 12:38 EST Glucose Level 115 mg/dL 04/28/2022 12:38 EST Creatinine Level 0.99 mg/dL 04/28/2022 12:38 EST eGFR AA 75 04/28/2022 12:38 EST eGFR Non-AA 75 04/28/2022 12:38 EST Calcium Level 9.2 mg/dL 04/28/2022 12:38 EST Protein Total 7.4 g/dL 04/28/2022 12:38 EST Albumin Level 3.7 g/dL 04/28/2022 12:38 EST Bilirubin Total 0.5 mg/dL 04/28/2022 12:38 EST Lipase Level 27 unit/L 04/28/2022 12:38 EST Troponin-I <5.0 pg/mL 04/28/2022 12:38 EST Ethanol Level <5 mg/dL 04/28/2022 12:38 EST Employed in healthcare? Unknown 04/28/2022 12:59 EST Symptomatic as defined by CDC? Unknown 04/28/2022 12:59 EST Hospitalized due to COVID-19? Unknown 04/28/2022 12:59 EST In ICU? Unknown 04/28/2022 12:59 EST Group care resident? Unknown 04/28/2022 12:59 EST status? Unknown 04/28/2022 12:59 EST SARS-CoV-2(Covid19)PCR(GXpert COVFLURSV) NEGATIVE 04/28/2022 12:59 EST Flu A (GXpert COVFLURSV) NEGATIVE 04/28/2022 12:59 EST Flu B (GXpert COVFLURSV) Neg-GeneXPert 04/28/2022 12:59 EST RSV (GXpert COVFLURSV) Neg-GeneXPert 04/28/2022 12:59 EST Patient/Associate Director Of Nursing Signature Patient Name:SAIGE PARRY Ruby I have received this information and my questions have been answered. Patient/Associate Director Of Nursing Name: Patient/Associate Director Of Nursing Signature: Relationship to Patient: Witness Name/Signature: Date: Electronically Signed on: 04/28/2022 15:24 ESTSigned by:MRB Discharge summary * Netta Lemus: PERFORM Event Display: Discharge Note Authored Date: * Netta Lemus: PERFORM Event Display: Discharge Note Authored Date: Diagnosis: 1. Gastroenteritis Comment: Diagnosis: Abdominal pain Comment: Electronically Signed on 04/28/22 03:31 PM Netta Lemus Patient Care team information Care Team Personnel Name: Daria Solis PA-C Position: Physician Member Role: Primary Care Physician Address: Address: [address] [place] [id number] Name: Ahsan Britt MD Position: Physician Member Role: Attending Physician Address: Address: [address] [place] [id number] Name: Polo Tavarez RN Position: Nurse Member Role: ED Nurse
--- OUTSIDE RECORDS SUMMARY | 2023-01-07 22:20 | XMS_ITS | Continuity of Care Document ---
Author Name Unknown Organization [facility] Address [address] [place] [id number] Encounter [facility] NBR [id number] Date(s): 10/14/22 - 10/14/22 [facility] [address], [place] [address] Discharge Disposition: Home or Self Care Attending Physician: Bert Dinero Admitting Physician: Bert Dinero
[2023-01-07 22:22] VITALS: BP 105/64; PULSE 87; RESP 16; TEMP 36.9; O2SAT 96
[2023-01-07 22:25] VITALS: BP 105/64; PULSE 87; RESP 18; O2SAT 96
--- NOTE | 2023-01-07 22:28 | ED.GENADUL_ITS ---
Discharge Plan Disposition Patient Disposition: Home Discharge Details Clinical Impression: Acute pain of both ears, Upper respiratory infection, viral, Acute viral pharyngitis Primary Care Provider: Unknown,Unknown ED Provider: Narda Madera Home Meds and New Rx's Prescriptions: No Action amoxicillin 500 mg tablet 1,000 mg PO QID Qty: 42 0RF Discharge Instructions Instructions: Probiotic (By mouth), Upper Respiratory Infection (ED), Viral Syndrome (ED) Additional Instructions: 1. Alternate at 1000 mg of acetaminophen every 3 hours with 400 to 600 mg of ibuprofen as needed for pain. 2. Continue amoxicillin until the prescription is finished. We recommend you take a probiotic while on antibiotics. 3. Return to the emergency department for any new or worrisome symptoms such as difficulty breathing talking or swallowing or for any new or worrisome concerns. Stand Alone Forms: Work Release Discharge Data Discharge Physician: Narda Madera Medical Decision Making This is a 37-year-old female with history of tobacco use disorder who was seen here on January 04 and diagnosed with left otitis media and placed on amoxicillin which she has been taking. She presents today with bilateral ear pain and sore throat. Her children have also been ill with similar symptoms. She has had chills but no fever. She has had a slight cough. There is been no drainage from her ears. She has no mastoid tenderness. She had her wisdom teeth extracted. Today her TMs appear normal and her tonsils are not enlarged, erythematous and did not have exudates. I have recommended that she take a probiotic while on amoxicillin and alternate acetaminophen every 3 hours with ibuprofen as needed for pain. I have advised her not to take more than 600 mg of ibuprofen at a time. I have advised her to return here if she develops any new or worrisome symptoms such as difficulty breathing talking or swallowing. I have agreed to write a note for work and advised that she follow-up with her primary care provider and to return here for any new or unusual concerns. The patient voiced understanding agreement with the discharge plan. All her questions and concerns were addressed prior to discharge. The patient is employed at [employer] here in [facility]. Differential Diagnosis Differential Diagnosis: Resolving otitis, viral URI, viral pharyngitis HPI General Date/Time Provider Initiated Documentation: 01/07/23 22:28 . Limitations to Documentation: no limitations . Information obtained by: patient and family . History of Present Illness with intensity rated at 7 (Left ear). HPI Narrative: Time seen was 10:28 PM in bed 10. Patient is a 37-year-old female with a history of tobacco use who is currently using nonnicotine inhalers, who presents with bilateral ear pain and sore throat. She was seen here on January 04 and diagnosed with left otitis media. She was prescribed amoxicillin which she has been taking but has not been taking a probiotic. She presents today with compl aints of bilateral ear pain and sore throat which began 2 days ago. She has also had chills and rhinorrhea but no fever. She tells me that her children have also been sick with similar symptoms. She has had a slight cough. She has not been able to go to work because she has not felt well. Her left ear pain is 4 out of 10 in her right ear pain is 6 out of 10. She is edentulous on top but did have her wisdom teeth removed. She has no history of immune compromise. She has not had any medications for the pain and has not taken any decongestants. The pain is aggravated at night especially when she rolls over. She has not had any discharge from her ears or change in hearing. She denies any rashes shortness of breath wheezing, chest or abdominal pain. No significant change in hearing, no difficulty talking breathing or swallowing Related Data Home Medications Medication Instructions Recorded Confirmed amoxicillin 500 mg tablet 1,000 mg (2 x 500 mg) PO QID #42 01/04/23 01/07/23 tabs Previous Rx's Medication Instructions Recorded amoxicillin 500 mg tablet 1,000 mg (2 x 500 mg) PO QID #42 01/04/23 tabs General Stated Complaint: EarProblem KOBY: 5 Review of Systems Narrative: see hpi ENT Ears, Nose, Mouth, and Throat: Denies dysphagia, Denies ear discharge, Reports otalgia, Reports nasal congestion and Reports sore throat Comments: No swelling behind her ears. Gastrointestinal Gastrointestinal: Denies dysphagia PFSH All Active Problems (Updated 01/07/23 @ 22:52 by Narda Madera MD) Acute viral pharyngitis (Acute) Upper respiratory infection, viral (Acute) Acute pain of both ears (Acute) Otitis media (Acute) Social History Smoking/Tobacco Use Status: Current every day Smoking risk assessment performed?: Yes Alcohol Intake: current Alcohol Intake frequency: a few times a week Substance use type: does not use Details: methadone Housing: homeless Do you feel safe at home: Yes Do you feel safe in your relationship?: Yes Exam Narrative Exam Narrative: The patient is a well-developed well-nourished female who is alert and oriented in no acute distress. She has normal phonation. She is normotensive. She is not tachycardic tachypneic or febrile. Her room air O2 sat is normal at 96%. Const General: cooperative, healthy appearing, comfortable, no acute distress, well developed, well groomed and well hydrated Nutritional Appearance: average body habitus and well nourished Orientation: alert, awake and oriented x3 HENMT Head: normal to inspection, normocephalic and atraumatic Ears: hearing grossly normal bilaterally, external ears normal, TM's normal bilaterally, mastoids normal, no periauricular adenopathy, hearing grossly not impaired and no periauricular adenopathy General nose exam: external nose normal, nares normal and no nasal discharge (Minimal nasal discharge) Face and sinus: normal facial exam, sinuses nontender, face symmetric, no ecchymosis, no erythema and no edema Mouth: oral mucosae normal, lip normal, tongue normal, oropharynx normal, moist mucous membranes and other (Normal phonation. The patient is handling secretions.) Teeth and gingiva: other (The patient has had upper teeth extracted. There is no buccal cellulitis) Throat: posterior oropharynx normal, tonsils normal, uvula midline, no peritonsillar masses and no postnasal drainage Other: Normal phonation. She is handling secretions. Eyes General: appearance normal, both eyes and all related structures Eyelids: eyelids normal Conjunctivae: conjunctivae normal Sclera: sclerae normal Cornea: corneas normal Pupils: PERRL EOM: EOM intact bilaterally and No nystagmus Neck Neck: normal visual inspection, full ROM, no lymphadenopathy, no meningeal signs, trachea midline and supple Lymphatic: no lymphadenopathy noted Chest Chest: normal inspection of the chest Resp Effort & Inspection: normal respiratory effort, able to speak in complete sentences, no audible wheezes, no nasal flaring, no respiratory distress, no retractions, no stridor, not tachypneic, no tracheal deviation, no use of accessory muscles, No prolonged expiratory phase and other (Normal inspiratory to expiratory ratio.) Auscultation: clear to auscultation bilaterally, no rales, no rhonchi, no wheezes and no rubs Tactile Fremitus: tactile fremitus absent Cardio Jugular venous pressure: no JVD Palpation: normal PMI Rate: regular rate Rhythm: regular rhythm Heart Sounds: S1 normal, S2 normal, no gallops, no murmurs and no rubs GI Inspection: normal to inspection and non-distended Palpation: soft, no hepatosplenomegaly, no guarding and nontender Percussion: normal to percussion Auscultation: normal bowel sounds General: No CVA tenderness Skin General skin exam: no rashes or lesions noted, turgor normal, no petechiae, no purpura and other (Skin is normal for ethnicity.) Lesions: no lesions Rashes: no rashes Trauma: no lacerations or abrasions Neuro General: patient alert, patient awake, patient oriented x3, moves all extremities, no meningeal signs, no focal motor deficits and CN's II-XI intact bilaterally Cranial Nerves: CN's II-XI intact bilaterally, PERRL, accommodation normal, EOM intact bilaterally, no nystagmus, facial strength normal, tongue midline, hearing normal and no nystagmus Cognition: normal cognition Speech: speech normal Gait: normal gait Motor: muscle tone normal throughout and strength 5/5 throughout Sensory Exam: no sensory deficits noted Extrem General: normal to inspection, full ROM, capillary refill normal, no clubbing, cyanosis or edema and no calf tenderness Psych Appearance: grossly normal Affect: normal affect Attitude: cooperative Thought Process: normal Thought Content: normal Insight: insight good Judgment: judgment good Other: The patient appears to have capacity make medical decisions. Course I have advised the patient to take a decongestant for daytime congestion and a antihistamine for nighttime congestion. I have advised her she can also use a decongestant nasal spray but warned her against using it for longer than 2 days. Vital Signs Vital signs: Vital Signs Temperature 36.9 C 01/07/23 22:22 Pulse 87 01/07/23 22:22 Respiratory Rate 16 01/07/23 22:22 Blood Pressure 105/64 11/04/23 22:22 Pulse Oximetry 96 01/07/23 22:22 Temperature 36.9 C 01/07/23 22:22 Pulse 87 01/07/23 22:25 Respiratory Rate 18 01/07/23 22:25 Respiratory Effort Normal 01/07/23 22:25 Blood Pressure 105/64 01/07/23 22:25 Pulse Oximetry 96 01/07/23 22:25 Oxygen Delivery Method Room Air 01/07/23 22:25 Oxygen Flow Rate 0 01/07/23 22:22 Pain Level 8 01/07/23 22:22
[2023-01-07] MEDS: Acetaminophen 500 MG TAB 1000 MG PO (22:49)
[2023-01-07] MEDS: Ibuprofen 400 MG TAB PO (22:49)
== END 2023-01-07 22:59 | disposition home or self-care (01) ==
PROVIDERS: Emergency Provider Emergency Medicine Emergency Medical Services
DX: H92.03 Otalgia, bilateral (principal); J06.9 Acute upper respiratory infection, unspecified
CPT/HCPCS: 99282; 99283

== ENCOUNTER 2023-03-14 01:56 | Emergency (ER) | payer MEDICAID, SELFPAY ==
[2023-03-14] VITALS (50 sets, daily range): BP systolic 69–123; BP diastolic 30–79; PULSE 57–80; RESP 6–21; TEMP 36.6; O2SAT 96–100
--- NOTE | 2023-03-14 01:45 | RT.EKG_ITS ---
APPROVED REPORT Exam: Resting ECG Reason for Exam: chest pain Patient Location: E HR:72 bpm ECG Measurements Heart Rate 72 AXIS LA 152 P 70 QRSd 106 QRS 59 QT 394 T 52 QTc 433 Conclusion Sinus rhythm...normal P axis, V-rate 60- [address] segment or T wave abnoramlities to suggest occluisve [place]
--- NOTE | 2023-03-14 02:00 | DI.RAD_ITS ---
Exam(s) XR CHEST 2V PA LATERAL EXAM: XR CHEST 2V PA LATERAL CLINICAL HISTORY: chest pain. TECHNIQUE: 2D digital imaging was performed. COMPARISON: No exams were available for comparison FINDINGS: 2 views: Heart size is normal. The mediastinum is not widened. Left lung is clear. Pleural based density in the lateral aspect of the lower right lung noted which possibly related to healed rib fracture versus rib lesion. Appropriate follow-up recommended. IMPRESSION: Lateral right lung finding as above. DATA REPOSITORY: RADIATION DOSE DELIVERED:
--- NOTE | 2023-03-14 02:12 | ED.GENADUL_ITS ---
HPI General Stated Complaint: Chest Pain Mode of arrival: EMS. KOBY: 2 Date/Time Provider Initiated Documentation: 03/14/23 02:01. Limitations to Documentation: no limitations. Information obtained by: patient and EMS. HPI Narrative: 37yo F with opiate use disorder on methadone, no other medical conditions, presenting for acute chest pain and feeling bad. Symptoms started ~15 minutes after smoking pot. Developed severe substernal chest pain and some shortness of breath, fell down. Did not strike her head or lose consciousness. Chest pain persists, dull, nonradiating. Shortness of breath has resolved. No pain elsewhere. No nausea, vomiting, or abdominal pain. Has never had similar symptoms in the past. She is otherwise in her usual state of health with no fevers, chills, rash, flank pain, dysuria, hematuria, LE edema, orthopnea, JIMENEZ, or other concerns. Related Data Home Medications Medication Instructions Recorded Confirmed methadone 10 mg/mL oral 130 mg PO DAILY 03/14/23 03/14/23 concentrate (Methadose) Allergies Allergy/AdvReac Type Severity Reaction Status Date / Time No Known Allergies Allergy Unverified 03/14/23 02:00 Review of Systems Narrative: see HPI PFSH All Active Problems (Updated 03/14/23 @ 06:36 by Katie Cannon MD) Hypocalcemia (Acute) Hypomagnesemia (Acute) Hypokalemia (Acute) Chest pain (Acute) Social History Smoking/Tobacco Use Status: Current every day Smoking risk assessment performed?: Yes Alcohol Intake: current Alcohol Intake frequency: a few times a week Substance use type: does not use Details: methadone Housing: homeless Do you feel safe at home: Yes Do you feel safe in your relationship?: Yes Exam Narrative Exam Narrative: General: Alert, well appearing, well nourished, tearful Head: Normocephalic, atraumatic Neck: Trachea midline, ?Neck supple. Cardiac: ?RRR, no murmurs appreciated Resp: No respiratory distress. CTAB. Abd: ?Soft, non-distended, nontender : ?No suprapubic tenderness. No CVA tenderness. Extremities: ?No deformities.? No peripheral edema. Neurologic: GCS 15. ? Moves all extremities freely against gravity Course Vital Signs Vital signs: Vital Signs Temperature 36.6 C 03/14/23 01:56 Pulse 80 03/14/23 01:56 Respiratory Rate 18 03/14/23 01:56 Blood Pressure 123/79 03/14/23 01:56 Temperature 36.6 C 03/14/23 01:56 Temperature Source Oral 03/14/23 01:56 Pulse 80 03/14/23 01:56 Respiratory Rate 18 03/14/23 01:56 Blood Pressure 123/79 03/14/23 01:56 Oxygen Delivery Method Room Air 03/14/23 01:56 Oxygen Flow Rate 0 03/14/23 01:56 End Tidal Co2 100 03/14/23 01:56 Pain Level 5 03/14/23 01:56 Medical Decision Making 37yo F with opiate use disorder on methadone, no other medical conditions, presenting for acute chest pain and feeling bad. Symptoms started ~15 minutes after smoking pot; substernal chest pain and shortness of breath leading to a fall. No LOC or HS. Normal vital signs on arrival, tearful and anxious on exam, physical exam otherwise benign with no respiratory distress or abdominal tenderness. No tachycardia, hypoxia, or shortness of breath currently to suggest pulmonary embolism; would not workup further with dimer or CT imaging. Low risk for acute coronary syndrome; suspect likely reaction to ingestion. Tylenol & diazepam for symptoms. Will eval for life threatening causes with EKG, CXR, labs. EKG NSR, appropriate intervals, no ST segment or T wave ab normalities to suggest occlusive MN. CXR independently reviewed, no focal pneumonia or pneumothorx on my view; agree with radiology read below. Labs reviewed as below, CBC normal. CMP with marked electrolyte abnormalities including hypokalemia to 2.6 and calcium of 6.2. Mag slightly low at 1.4. No EKG changes. Electrolyte replacement ordered including PO magnesium, IV & PO potassium, IV & PO calcium. Initial troponin negative; repeat troponin negative. HEART score 0, low risk. Would not further pursue ACS. Repeat BMP with normalized electrolytes. On reassessment she reports her pain has resolved. Advised to followup with PCP regarding electorlytes. Discharged home; discharge instructions and return precautions were reviewed with patient who verbalized understanding. All questions were answered and she is in full agreement with the plan. Imaging Data Radiologic Study: Imaging: X-Ray Radiologist's impression: IMPRESSION: No acute findings. Lab Data Lab results reviewed: Yes I reviewed the patient's lab results. Labs: Laboratory Tests Range/Units 03/14/23 03/14/23 02:40 05:45 WBC (4.4-10.8) 10^3/uL 8.84 RBC (3.93-5.22) 10^6/uL 4.34 Hgb (11.2-15.7) g/dL 13.1 Hct (36.0-46.0) % 39.8 MCV (80-95) fL 92 MCH (27.0-33.0) pg 30.2 MCHC (32.0-36.0) % 32.9 RDW (11.7-14.6) % 12.5 Plt Count (130-400) 10^3/uL 330 MPV (8.0-11.0) fL 9.7 Immature Gran % 0.3 Neutrophils % 69.9 Lymphocytes % 22.9 Monocytes % 5.7 Eosinophils % 0.7 Basophils % 0.5 Nucleated RBC % (0.0-0.3) % 0.0 Absolute Neutrophils (1.2-6.7) 10^3/uL 6.19 Absolute Lymphocytes (1.2-3.4) 10^3/uL 2.02 Absolute Monocytes (0.1-0.8) 10^3/uL 0.50 Absolute Eosinophils (0.0-0.7) 10^3/uL 0.06 Absolute Basophils (0.0-0.2) 10^3/uL 0.04 Sodium (136-145) mmol/L 146 H 140 Potassium (3.5-5.1) mmol/L 2.6 L* 4.6 D Chloride (98-107) mmol/L 113 H 105 Carbon Dioxide (21.0-32.0) mmol/L 22.3 29.7 Anion Gap (3-11) mmol/L 10.7 5.3 BUN (7-18) mg/dL 7 10 Creatinine (0.55-1.02) mg/dL 0.5 L 0.8 Est GFR (CKD-EPI 2020) (mL/min/1.73m2) 122.28 96.06 Glucose (74-106) mg/dL 88 98 Calcium (8.5-10.1) mg/dL 6.2 L* 9.6 Magnesium (1.8-2.4) mg/dL 1.4 L Total Bilirubin (0.2-1.0) mg/dL 0.1 L AST (15-37) U/L 11 L ALT (14-59) U/L 15 Alkaline Phosphatase (46-116) U/L 52 Troponin I (<or=60) ng/L < 50 < 50 Total Protein (6.4-8.2) g/dL 5.0 L Albumin (3.4-5.0) g/dL 2.5 L Beta HCG, Quant (1-3) mIU/mL 1 Quality:SDOH Health Related Social Needs: No Data to Display Discharge Plan Disposition Patient Disposition: Home Condition: Good Discharge Details Clinical Impression: Chest pain, Hypokalemia, Hypomagnesemia, Hypocalcemia Primary Care Provider: Unknown,Unknown ED Provider: Katie Cannon Home Meds and New Rx's Prescriptions: No Action methadone [Methadose] 10 mg/mL concentrate 130 mg PO DAILY Discharge Instructions Instructions: Hypocalcemia (ED), Hypokalemia (ED), Hypomagnesemia (ED) Additional Instructions: Call your primary care doctor today to schedule an appointment within 3 days to followup on your visit here. Your potassium, magnesium, and calcium were all low here. You may need to start supplements. Please discuss this with your PCP. Return to the emergency department for new or worsening symptoms including chest pain, difficultly breathing, or if you have any other concerns
[2023-03-14] MEDS: diazePAM 2 MG TAB PO (02:30)
[2023-03-14 03:02] LABS: Abs Immature Grans 0.03 10^3/uL (0.0-0.06); Absolute Basophil Count 0.04 10^3/uL (0.0-0.2); Absolute Eosinophil Count 0.06 10^3/uL (0.0-0.7); Absolute Lymphocyte Count 2.02 10^3/uL (1.2-3.4); Absolute Neutrophil Count 6.19 10^3/uL (1.2-6.7); Basophils % 0.5; Eosinophils % 0.7; HCT 39.8 % (36.0-46.0); HGB 13.1 g/dL (11.2-15.7); Immature Grans % 0.3; Lymphocytes % 22.9; MCH 30.2 pg (27.0-33.0); MCHC 32.9 % (32.0-36.0); MCV 92 fL (80-95); MPV 9.7 fL (8.0-11.0); Monocytes % 5.7; Neutrophils % 69.9; Platelet Count 330 10^3/uL (130-400); RBC 4.34 10^6/uL (3.93-5.22); RDW 12.5 % (11.7-14.6); RDW-SD 41.7 fL; WBC 8.84 10^3/uL (4.4-10.8)
[2023-03-14 03:04] LABS: Troponin I < 50 ng/L (<or=60)
[2023-03-14 03:15] LABS: ALT 15 U/L (14-59); AST 11 U/L (15-37); Albumin 2.5 g/dL (3.4-5.0); Alkaline Phosphatase 52 U/L (46-116); Anion Gap 10.7 mmol/L (3-11); BUN 7 mg/dL (7-18); Bilirubin, Total 0.1 mg/dL (0.2-1.0); CO2 22.3 mmol/L (21.0-32.0); CREATININE 0.5 mg/dL (0.55-1.02); Chloride 113 mmol/L (98-107); Estimated GFR 122.28 (mL/min/1.73m2); Glucose 88 mg/dL (74-106); HCG Quant, Pregnancy 1 mIU/mL (1-3); Sodium 146 mmol/L (136-145)
[2023-03-14 03:21] LABS: Calcium 6.2 mg/dL (8.5-10.1); Potassium 2.6 mmol/L (3.5-5.1)
[2023-03-14 03:52] LABS: Magnesium 1.4 mg/dL (1.8-2.4)
[2023-03-14] MEDS: Calcium Carbonate 1.5 GM TAB 3 GM PO (03:59)
[2023-03-14] MEDS: Magnesium Gluconate 500 MG TAB 1000 MG PO (04:00)
[2023-03-14] MEDS: Potassium Chloride 20 MEQ TABCR 40 MEQ PO (04:00)
[2023-03-14] MEDS: CALCIUM GLUCONATE in NaCl 1 GM/50 ML BAG IVPB (04:00)
[2023-03-14] MEDS: POTASSIUM CHLORIDE 20 MEQ/100 ML BAG 50 MEQ IVPB ×2 (04:09→06:15)
--- NOTE | 2023-03-14 05:40 | DI.VRAD_ITS ---
PROCEDURE INFORMATION: Exam: XR Chest Exam date and time: 03/14/2023 3:33 AM Age: 37 years old Clinical indication: Other: Chest pain TECHNIQUE: Imaging protocol: Radiologic exam of the chest. Views: 2 views. COMPARISON: No relevant prior studies available. FINDINGS: Lungs: Unremarkable. No consolidation. Pleural spaces: Unremarkable. No pleural effusion. No pneumothorax. Heart/Mediastinum: Unremarkable. No cardiomegaly. Bones/joints: Unremarkable. IMPRESSION: No acute findings. Dictated and Authenticated by: Lili Sprague MD. Ordering:JENNIFER Wilson MD
[2023-03-14 06:14] LABS: Anion Gap 5.3 mmol/L (3-11); BUN 10 mg/dL (7-18); CO2 29.7 mmol/L (21.0-32.0); CREATININE 0.8 mg/dL (0.55-1.02); Calcium 9.6 mg/dL (8.5-10.1); Chloride 105 mmol/L (98-107); Estimated GFR 96.06 (mL/min/1.73m2); Glucose 98 mg/dL (74-106); Potassium 4.6 mmol/L (3.5-5.1); Sodium 140 mmol/L (136-145)
[2023-03-14 06:23] LABS: Troponin I < 50 ng/L (<or=60)
== END 2023-03-14 06:53 | disposition home or self-care (01) ==
PROVIDERS: Emergency Provider Student in an Organized Health Care Education/Training Program
DX: R07.9 Chest pain, unspecified (principal); E87.6 Hypokalemia; E83.42 Hypomagnesemia; E83.51 Hypocalcemia; F11.90 Opioid use, unspecified, uncomplicated; F12.90 Cannabis use, unspecified, uncomplicated; F17.210 Nicotine dependence, cigarettes, uncomplicated
CPT/HCPCS: 80048; 80053; 93005; 96365; 96366; 96368; 99284; 71046; 83735; 84484; 84702; 85025; 93010; J0613; J3480